=== PATIENT | female | born 1970 | race African-American/Black ===

== ENCOUNTER 2019-05-08 20:10 | Emergency (ER) | payer MEDICAID, OTHER ==
[~2019-05-08] VITALS: Ht 177.8 cm; Wt 122.0 kg
[2019-05-08 20:40] VITALS: BP 135/86
== END 2019-05-08 23:53 | disposition home or self-care (01) ==
LOC: ER 20:10
DX: J06.9 Acute upper respiratory infection, unspecified (principal); Z91.011 Allergy to milk products; Z91.018 Allergy to other foods; Z98.890 Other specified postprocedural states
CPT/HCPCS: 99282